=== PATIENT | female | born 1980 | race Caucasian/White ===

== ENCOUNTER 2016-10-31 11:07 | Day surgery (SDC) | payer OTHER ==
[~2016-10-31] VITALS: Ht 162.6 cm; Wt 91.3 kg
[2016-10-31] MEDS ORDERED: PROPOFOL 40 ML ONE (12:28)
[2016-10-31 12:30] VITALS: Ht 162.6 cm; Wt 91.3 kg
[2016-10-31] MEDS ORDERED: NO HOME MEDS (12:37)
[2016-10-31 12:43] VITALS: BP 103/53; PULSE 66; RESP 20
[2016-10-31 13:11] VITALS: BP 102/59; PULSE 66; RESP 19
--- NOTE | 2016-10-31 19:01 | GILP ---
DATE OF PROCEDURE: 10/31/2016 NAME OF PROCEDURE: Esophagogastroduodenoscopy and biopsy. SURGEON: Meli Gill MD PREOPERATIVE DIAGNOSES: 1. Abdominal pain. 2. Chronic heartburn. POSTOPERATIVE DIAGNOSES: 1. Gastroesophageal reflux disease. 2. Gastritis. 3. Gastric mucosal biopsies were taken for Helicobacter pylori test. INDICATION FOR THE PROCEDURE: Ms. Brandy Timmons is a 35-year-old female patient who had upper ab dominal pain and chronic heartburn, not responding to therapy. The patient was scheduled for endosc opic examination for further evaluation. The procedure and possible complications are well explained to the patient. The patient understood and consented to the procedure. DESCRIPTION OF PROCEDURE: Under the influence of anesthesia, the gastroscope was carefully introduc ed into the esophagus and under direct vision, it was advanced to the stomach and through the pyloru s into the duodenal bulb and descending duodenum. FINDINGS: ESOPHAGUS: The patient had gastroesophageal reflux disease. STOMACH: She had gastritis and gastric mucosal biopsies were taken for H. pylori test. DUODENUM: Normal. She tolerated the procedure very well and there were no complication from the procedure. At the end of the procedures, she was awake with stable vital signs and she was discharged home to the care of her family. IMPRESSION: 1. Gastroesophageal reflux disease. 2. Gastritis with erosions. 3. Gastric mucosal biopsies were taken for Helicobacter pylori test. PLAN: 1. Omeprazole 40 mg p.o. q.a.m. 2. Await H. pylori test report. Dictated By: MELI ROBERTS/YURIY Conf#: [id number] DID#: [id number] CC: MELI GILL MD;*EndCC*
--- NOTE | 2016-10-31 20:04 | CONS ---
DATE OF ADMISSION: 10/31/2016 DATE OF CONSULTATION: I thank you very much for this kind referral. HISTORY OF PRESENT ILLNESS: The patient is a 35-year-old female patient who has been referred to me for further evaluation of chronic heartburn not responding to therapy. The patient also has epigas tric pain associated with bloating. There is no past history of peptic ulcer disease. She is not t aking any nonsteroidal anti-inflammatory agents. Her appetite has been good and she is not losing a ny weight. She does not have any history of gallstones. She does not have any fever, chills or jau ndice. There is no history of liver disease. The patient denies any change in bowel habits or rect al bleeding. She is not a hypertensive or a diabetic. She does not have any heart disease or lung problem. There is no history of kidney disease. SOCIAL HISTORY: She is a nonsmoker. She does not abuse alcohol. FAMILY HISTORY: Negative for gastrointestinal tract neoplasm. ALLERGIES: THERE IS NO HISTORY OF SIGNIFICANT DRUG ALLERGY. MEDICATIONS: None. PHYSICAL EXAMINATION VITAL SIGNS: She is 5 feet 4 inches tall, and she weighs 200 pounds. HEART: Normal 1st and 2nd heart sounds. LUNGS: Clear. ABDOMEN: Soft without any distention. Liver and spleen are not palpable. There are no masses. Th ere is no focal tenderness. Normal bowel sounds are heard. CENTRAL NERVOUS SYSTEM: Does not reveal any focal neurological deficit. IMPRESSION 1. Chronic heartburn, not responding to therapy. 2. Upper abdominal pain associated with bloating. PLAN 1. Endoscopic examination for further evaluation. 2. Because of the obesity with a short, thick neck, she needs monitored anesthesia care. ADDENDUM: The patient is deaf. The procedure and possible complications are well-explained to the patient, to her ; they bot h understand and consent to the procedure. I thank you once again. With warmest personal regards, Dictated By: MELI ROBERTS/YURIY Conf#: [id number] DID#: [id number]
== END 2016-10-31 18:00 | disposition home or self-care (01) ==
LOC: GIL 11:07
PROVIDERS: ATTEND Internal Medicine Gastroenterology
DX: K21.9 Gastro-esophageal reflux disease without esophagitis (principal); K29.60 Other gastritis without bleeding
CPT/HCPCS: 43239; 84703; 87081; Z7610